=== PATIENT | male | born 1965 | race Caucasian/White ===

== ENCOUNTER 2017-11-30 18:55 | Emergency (ER) | payer BC ==
[2017-11-30 19:05] VITALS: RESP 20
[2017-11-30] MEDS ORDERED: LIDOCAINE 1% INJ 10MG/ML (20 ML MDV) SQ ONE (19:48)
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
--- NOTE | 2017-11-30 20:04 | CT ---
EXAMINATION TYPE: CT brain rodriine giovani con DATE OF EXAM: 11/30/2017 COMPARISON: NONE HISTORY: Fall today. Laceration left supraorbital region. +LOC. CT DLP: 1395.7 mGycm. Automated Exposure Control for Dose Reduction was Utilized. TECHNIQUE: CT scan of the head and cervical spine are performed without contrast. FINDINGS: There is no acute intracranial hemorrhage, mass effect, or midline shift identified. Scat tered areas of hypoattenuation are seen within the cross radiata, most commonly on the basis of micr oangiopathy. The ventricles and sulci are within normal limits in size. The globes are intact and t he visualized sinuses are clear. There is a left frontal large laceration although no underlying calv arial fracture is seen. Cervical spine is visualized in its entirety from C1 through upper thoracic levels and demonstrates s atisfactory alignment without evidence of acute fracture or dislocation. Facets remain aligned. Mild multilevel degenerative changes of the cervical spine are seen with posterior disc osteophyte comple xes at C4-C5, C5-C6 and C6-C7 creating mild spinal canal stenosis at C5-C6 and C6-C7. Mild multilevel neural foraminal narrowing is also seen. There is slight thickening of the usual cervical lordosis. Prevertebral soft tissue appears within normal limits. The C1-C2 articulation is unremarkable. IMPRESSION: 1. There is no acute fracture or dislocation evident in the cervical spine. 2. No acute intracranial hemorrhage, mass effect, or midline shift is seen. 3. Left frontal laceration with no underlying calvarial fracture. 4. Mild multilevel degenerative changes of the cervical spine.
[2017-11-30] MEDS ORDERED: DIPH,PERTUS(ACELL)TETVAC-LF 0.5 ML VIAL IM ONE (21:11)
[2017-11-30 21:48] VITALS: BP 116/65; PULSE 75; TEMP 97.8
== END 2017-11-30 21:54 | disposition home or self-care (01) ==
LOC: EC 18:55
DX: S01.112A Laceration without foreign body of left eyelid and periocular area, initial encounter (principal); R55 Syncope and collapse; F17.200 Nicotine dependence, unspecified, uncomplicated; Z23 Encounter for immunization; W01.0XXA Fall on same level from slipping, tripping and stumbling without subsequent striking against object, initial encounter; Y93.89 Activity, other specified; Y92.71 Barn as the place of occurrence of the external cause
CPT/HCPCS: 72125; 70450; 90715; 99283; 12013; 90471; J2001

== ENCOUNTER → 2017-12-26 | Outpatient (CLI) | payer BC ==
--- NOTE | 2017-12-26 15:57 | XR ---
Right RIBS HISTORY: Pain 4 views of the right RIBS Bone mineralization is normal. Arthropathy noted at the right acromioclavicular joint. No evident dis placed fracture. Degenerative disc changes are noted incidentally in the spine. IMPRESSION: No evident fracture. Bone scan could be performed for increased sensitivity as indicated. Additional findings above.
== END | disposition home or self-care (01) ==
LOC: RADXRMAIN 14:57
PROVIDERS: ATTEND Family Medicine
DX: R07.82 Intercostal pain (principal)

== ENCOUNTER → 2018-12-03 | Outpatient (CLI) | payer BC ==
--- NOTE | 2018-12-03 15:56 | XR ---
EXAMINATION TYPE: XR chest 2V DATE OF EXAM: 12/03/2018 COMPARISON: Right rib x-rays dated 12/26/2017 HISTORY: Tobacco abuse for 35 years. Physical exam. TECHNIQUE: Frontal and lateral views of the chest are obtained. FINDINGS: There is no focal air space opacity, pleural effusion, or pneumothorax seen. Pulmonary hyp erinflation and increased retrosternal airspace relate to underlying COPD. The cardiac silhouette siz e is within normal limits. The osseous structures are intact. Mild multilevel degenerative changes lumbar spine. IMPRESSION: No acute cardiopulmonary process. Underlying COPD.
== END ==
LOC: RADXRMAIN 15:14
PROVIDERS: ATTEND Family Medicine
DX: Z00.00 Encounter for general adult medical examination without abnormal findings (principal); J44.9 Chronic obstructive pulmonary disease, unspecified; F17.210 Nicotine dependence, cigarettes, uncomplicated
CPT/HCPCS: 71046

== ENCOUNTER → 2019-12-24 | Outpatient (CLI) | payer BC ==
--- NOTE | 2019-12-24 12:16 | P.STRESS ---
- Stress Test Note Stress Test Results/Findings: Exam Performed: stress test Exam Date: 12/24/19 Reason for Exam: CHEST PAIN Height: 6 ft 2 in Weight: 90.718 kg Protocol: KATRINA Stage: 3 Duration of Exercise: 9:00 Resting Heart Rate: 74 Resting Blood Pressure: 143/94 Maximum Achieved Heart Rate: 148 Maximum Achieved Blood Pressure: 176/78 85% PMHR: 141 100% PMHR: 166 METS: 10.5 Technologist Comment: Stress Test Results/Findings: This is a 54-year-old gentleman with history of hypercholesteremia and family history of ischemic heart disease and also smoking being evaluated for symptoms of chest pain. Stress data: Baseline EKG showed sinus rhythm with normal ND and QRS duration. The patient walked on the Katrina protocol for 9 minutes achieving a maximum rate of 148 with blood pressure 176/78. EKGs taken during and after exercise did not reveal any changes of ischemia. Patient did not experience any chest pain. No arrhythmias are noted. Final impression #1. Negative stress test #2. Patient did not experience any chest pain #3. No arrhythmias are noted. #4. Patient. Excess capacity is average.
--- NOTE | 2019-12-24 12:32 | EST ---
Stress Test Results/Findings: Exam Performed: stress test Exam Date: 12/24/19 Reason for Exam: CHEST PAIN Height: 6 ft 2 in Weight: 90.718 kg Protocol: KATRINA Stage: 3 Duration of Exercise: 9:00 Resting Heart Rate: 74 Resting Blood Pressure: 143/94 Maximum Achieved Heart Rate: 148 Maximum Achieved Blood Pressure: 176/78 85% PMHR: 141 100% PMHR: 166 METS: 10.5 Technologist Comment: Stress Test Results/Findings: This is a 54-year-old gentleman with history of hypercholesteremia and family history of ischemic heart disease and also smoking being evaluated for symptoms of chest pain. Stress data: Baseline EKG showed sinus rhythm with normal GA and QRS duration. The patient walked on the Katrina protocol for 9 minutes achieving a maximum rate of 148 with blood pressure 176/78. EKGs taken during and after exercise did not reveal any changes of ischemia. Patient did not experience any chest pain. No arrhythmias are noted. Final impression #1. Negative stress test #2. Patient did not experience any chest pain #3. No arrhythmias are noted. #4. Patient exercise capacity is average. MTDD
== END | disposition home or self-care (01) ==
LOC: RADNMMAIN 10:17
PROVIDERS: ATTEND Family Medicine
DX: R07.89 Other chest pain (principal)
CPT/HCPCS: 93017

== ENCOUNTER → 2019-12-31 | Outpatient (CLI) | payer BC ==
--- NOTE | 2019-12-31 17:18 | ECHOF ---
Referral Reason:R07.89 Atypical chest pain MEASUREMENTS -------- HEIGHT: 182.9 cm WEIGHT: 90.7 kg BP: RVIDd: 1.9 cm (< 3.3) IVSd: 0.9 cm (0.6 - 1.1) LVIDd: 4.6 cm (3.9 - 5.3) LVPWd: 0.9 cm (0.6 - 1.1) IVSs: 1.5 cm LVIDs: 2.7 cm LVPWs: 1.5 cm LAESV Index (A-L): 18.34 ml/m Ao Diam: 3.1 cm (2.0 - 3.7) AV Cusp: 2.0 cm (1.5 - 2.6) LA Diam: 3.2 cm (2.7 - 3.8) MV EXCURSION: 19.892 mm (> 18.000) MV EF SLOPE: 122 mm/s (70 - 150) EPSS: 1.8 cm MV E Regis: 0.72 m/s MV DecT: 226 ms MV A Regis: 0.59 m/s MV E/A Ratio: 1.20 RAP: 5.00 mmHg RVSP: 20.98 mmHg FINDINGS -------- This was a technically good study. The left ventricular size is normal. Left ventricular wall thickness is normal. Overall left vent ricular systolic function is normal with, an EF between 55 - 60 %. The diastolic filling pattern is normal for the age of the patient 8.51. The right ventricle is normal in size. The left atrial size is normal. Normal LA size by volume 22+/-6 ml/m2. The right atrial size is normal. The aortic valve is trileaflet and appears structurally normal. The mitral valve is normal. Mild mitral regurgitation is present. The tricuspid valve appears structurally normal. Mild tricuspid regurgitation present. Right vent ricular systolic pressure is normal at < 35 mmHg. There is no pulmonic regurgitation present. The aortic root size is normal. Normal inferior vena cava with normal inspiratory collapse consistent with estimated right atrial pre ssure of 5 mmHg. There is no pericardial effusion. CONCLUSIONS -------- 1. The left ventricular size is normal. 2. Left ventricular wall thickness is normal. 3. Overall left ventricular systolic function is normal with, an EF between 55 - 60 %. 4. The diastolic filling pattern is normal for the age of the patient 8.51 5. Mild mitral regurgitation is present. 6. Mild tricuspid regurgitation present. 7. There is no pericardial effusion. SALES REPRESENTATIVE DOOR TO DOOR: Radha Olsen RDCS
== END | disposition home or self-care (01) ==
LOC: RADECHMAIN 15:24
PROVIDERS: ATTEND Family Medicine
DX: I08.1 Rheumatic disorders of both mitral and tricuspid valves (principal)
CPT/HCPCS: 93306

== ENCOUNTER → 2020-05-25 | Outpatient (CLI) | payer BC ==
--- NOTE | 2020-05-25 15:08 | XR ---
EXAMINATION TYPE: XR chest 2V DATE OF EXAM: 05/25/2020 COMPARISON: 12/03/2018 INDICATION: History of smoking TECHNIQUE: Frontal and lateral views of the chest are obtained. FINDINGS: The heart size is normal. The pulmonary vasculature is normal. The lungs are clear. Some hyperinflation is present. Early emphysematous change may be present. IMPRESSION: 1. No acute pulmonary process. 2. Correlate for emphysema. 3. Evaluation for qualification for low-dose CT screening chest for lung cancer is recommended
== END | disposition home or self-care (01) ==
LOC: RADXRMAIN 14:36
PROVIDERS: ATTEND Family Medicine
DX: R07.89 Other chest pain (principal); Z87.891 Personal history of nicotine dependence
CPT/HCPCS: 71046

== ENCOUNTER → 2020-07-11 | Outpatient (CLI) | payer BC ==
--- NOTE | 2020-07-11 16:38 | CTL ---
EXAMINATION TYPE: CT Low Dose Lung DATE OF EXAM ORDERED: 07/11/2020 HISTORY: Long-term tobacco use. Lung cancer screening CT DLP: 135.[address] CTDI: 3.4 mGy Automated exposure control for dose reduction was used. SCREENING VISIT: Initial study COMPARISON: None.22 TECHNIQUE: Low dose computed tomography scan was performed through the chest at 1 mm thick sections a nd reconstructed images in the coronal plane at [address] DIAGNOSTIC QUALITY: Satisfactory FINDINGS: LUNG NODULES: None. Possible 2 mm micronodule subpleural region right middle axial image 185. LUNGS: COPD: Severity: None Fibrosis: Severity: None Lymph nodes: No greater than 1 cm Other findings: None RIGHT PLEURAL SPACE: Effusion: None Calcification: None Thickening: None Pneumothorax: None LEFT PLEURAL SPACE: Effusion: None Calcification: None Thickening: None Pneumothorax: None HEART: Heart Size: Normal Coronary calcification: Mild Pericardial effusion: None OTHER FINDINGS: Upper abdomen: Small dependent gallstones and/or gallbladder sludge. Bony thorax: Straightening of the lower thoracic spine with prominent anterior spurring. Supraclavicular region: None. Other: None IMPRESSION: No concerning nodules. CT LUNG RAD AND CT CHEST RECOMMENDATION: Lung-Rad 1 Negative: Continue annual screening with LDCT in 12 months. S Modifier (other clinically significant findings): None
== END | disposition home or self-care (01) ==
LOC: RADCTMAIN 15:57
PROVIDERS: ATTEND Family Medicine
DX: Z12.2 Encounter for screening for malignant neoplasm of respiratory organs (principal); Z72.0 Tobacco use
CPT/HCPCS: 71271